=== PATIENT | male | born 1990 | race Caucasian/White ===

== ENCOUNTER 2018-09-18 19:19 | Emergency (ER) | payer OTHER ==
[~2018-09-18] VITALS: Ht 190.5 cm; Wt 148.6 kg
[2018-09-18 19:27] VITALS: Ht 190.5 cm; Wt 148.6 kg
[2018-09-18] MEDS ORDERED: HYDROCODON-ACE1 EAC2 PO (21:38)
[2018-09-18 22:05] VITALS: BP 138/88
== END 2018-09-18 22:05 | disposition home or self-care (01) ==
LOC: D.ER 19:19
DX: S61.211A Laceration without foreign body of left index finger without damage to nail, initial encounter (principal); W26.0XXA Contact with knife, initial encounter; Y93.89 Activity, other specified; Y92.89 Other specified places as the place of occurrence of the external cause